=== PATIENT | male | born 1990 | race Two or more races ===

== ENCOUNTER 2016-05-07 13:43 | Emergency (ER) | payer SELFPAY ==
--- NOTE | 2016-05-07 13:52 | ER Document Report ---
ED Medical Screen (RME) - General Stated Complaint: URINARY PROBLEM Time seen by provider: 13:50 Mode of Arrival: Ambulatory Information source: Patient Notes: 25-year-old male presents to ED for left flank pain radiating down the left leg and into his testicles. States after he drank a lot of water and there he noted he was not urinating. States she's never had any pain like this before and denies history of any kidney stones. - HPI Onset: Last week Onset/Duration: Intermittent - Since yesterday more frequent and worse
[2016-05-07] MEDS ORDERED: OXYCODONE-ACETAMINOPHEN 5-325 MG TABLET PO ONE (13:53)
[2016-05-07 14:41] LABS: ABSOLUTE EOSINOPHILS # (AUTO) 0.2 10^3/uL (0.0-0.6); ABSOLUTE LYMPHOCYTES (AUTO) 2.8 10^3/uL (0.5-4.7); ABSOLUTE MONOCYTES (AUTO) 1.2 10^3/uL (0.1-1.4); ABSOLUTE NEUT (AUTO) 5.1 10^3/uL (1.7-8.2); BASOPHILS % (AUTO) 0.5 % (0-2); HEMATOCRIT 46.6 % (37.9-51.0); HEMOGLOBIN 15.3 g/dL (13.5-17.0); HGB HCT DIFFERENCE -0.7; LYMPHOCYTES % (AUTO) 29.6 % (13-45); MEAN CORPUSCULAR HEMOGLOBIN 28.8 pg (27.0-33.4); MEAN CORPUSCULAR HGB CONC 32.9 g/dL (32.0-36.0); MEAN CORPUSCULAR VOLUME 88 fl (80-97); MONOCYTES % (AUTO) 12.9 % (3-13); RED BLOOD COUNT 5.31 10^6/uL (4.35-5.55); RED CELL DISTRIBUTION WIDTH 12.7 % (11.5-14.0); WHITE BLOOD COUNT 9.3 10^3/uL (4.0-10.5)
[2016-05-07 14:46] LABS: APPEARANCE,URINE CLEAR; BILIRUBIN,URINE NEGATIVE (NEGATIVE); GLUCOSE, URINE NEGATIVE (NEGATIVE); KETONES,URINE NEGATIVE (NEGATIVE); LEUKOCYTE ESTERASE,URINE NEGATIVE (NEGATIVE); NITRITE,URINE NEGATIVE (NEGATIVE); PROTEIN,URINE NEGATIVE (NEGATIVE)
[2016-05-07 14:49] LABS: ALANINE AMINOTRANSFERASE 131 U/L (21-72); ALBUMIN 4.9 g/dL (3.5-5.0); ALKALINE PHOSPHATASE 71 U/L (38-126); ANION GAP 16 (5-19); ASPARTATE AMINO TRANSFERASE 62 U/L (17-59); BILIRUBIN,TOTAL 0.9 mg/dL (0.2-1.3); BLOOD UREA NITROGEN 16 mg/dL (7-20); CALCIUM 10.1 mg/dL (8.4-10.2); CARBON DIOXIDE 25 mmol/L (22-30); CHLORIDE 103 mmol/L (98-107); CREATININE RESULT 0.77 mg/dL (0.52-1.25); GLUCOSE 110 mg/dL (75-110); TOTAL PROTEIN 8.6 g/dL (6.3-8.2)
--- NOTE | 2016-05-07 17:19 | ER Document Report ---
ED General - General Chief Complaint: Back Pain Stated Complaint: URINARY PROBLEM Mode of Arrival: Ambulatory TRAVEL OUTSIDE OF THE [place] 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 Patient also complaining of back pain left flank but does sometimes radiate down his left leg. Patient denies any urinary incontinence denies any bowel continence denies any numbness or tingling in the perineal region. Patient denies any trauma. Patient has a history of BPH. Patient denies penile drip or changes. - Related Data Allergies/Adverse Reactions: No Known Allergies Allergy (Unverified 05/07/16 13:52) Past Medical History - General Information source: Patient - Social History Smoking Status: Current Every Day Smoker Chew tobacco use (# tins/day): No Frequency of alcohol use: Occasional Drug Abuse: None Family History: None Patient has suicidal ideation: No Patient has homicidal ideation: No Renal/ Medical History: Denies: Hx Peritoneal Dialysis Review of Systems - Review of Systems Constitutional: No symptoms reported EENT: No symptoms reported Cardiovascular: No symptoms reported Respiratory: No symptoms reported Gastrointestinal: No symptoms reported Genitourinary: Other - Anuric Male Genitourinary: No symptoms reported Musculoskeletal: No symptoms reported Skin: No symptoms reported Hematologic/Lymphatic: No symptoms reported Neurological/Psychological: No symptoms reported -: Yes All other systems reviewed and negative Physical Exam - Vital signs Vitals: Temp Pulse Resp BP Pulse Ox 98.3 F 95 18 139/83 H 96 05/07/16 13:52 05/07/16 13:52 05/07/16 13:52 05/07/16 13:52 05/07/16 13:52 Interpretation: Normal - General General appearance: Appears well, Alert - HEENT Head: Normocephalic, Atraumatic Eyes: Normal Pupils: PERRL - Respiratory Respiratory status: No respiratory distress Chest status: Nontender Breath sounds: Normal Chest palpation: Normal - Cardiovascular Rhythm: Regular Heart sounds: Normal auscultation Murmur: No - Abdominal Inspection: Normal Distension: No distension Bowel sounds: Normal Tenderness: Nontender Organomegaly: No organomegaly - Back Back: Normal, Tender - Paraspinal back pain mild on the left side trauma. - Extremities General upper extremity: Normal inspection, Nontender, Normal color, Normal ROM , Normal temperature General lower extremity: Normal inspection, Nontender, Normal color, Normal ROM , Normal temperature, Normal weight bearing. No: Dimitri's sign - Neurological Neuro grossly intact: Yes Cognition: Normal Orientation: AAOx4 Rupert Coma Scale Eye Opening: Spontaneous [place] Coma Scale Verbal: Oriented [place] Coma Scale Motor: Obeys Commands Rupert Coma Scale Total: 15 Speech: Normal Motor strength normal: LUE, RUE, LLE, RLE Sensory: Normal - Psychological Associated symptoms: Normal affect, Normal mood - Skin Skin Temperature: Warm Skin Moisture: Dry Skin Color: Normal Course - Re-evaluation Re-evalutation: 05/07/16 23:07 Patient's urinalysis did show C[place] year. No signs of infection CT scan negative for any obstructive uropathy. More likely patient has decreased urination is that he is dehydrated. Encouraged patient otherwise working to drink plenty of water to avoid alcohol. Patient is back pain is not consistent with any critical etiology. Possible sciatica. Patient was given anti- inflammatories a medication for home patient was encouraged follow-up with his PCPThe patient presents with low back pain without signs of spinal cord compression, cauda equina syndrome, infection, aneurysm, or other serious etiology. The patient is neurologically intact. Given the extremely low risk of these diagnoses further testing and evaluation for these possibilities does not appear to be indicated at this time. The patient has been instructed to return if the symptoms worsen or change in any way. .. - Vital Signs Vital signs: Temp Pulse Resp BP Pulse Ox 98.2 F 89 16 142/80 H 99 05/07/16 17:30 05/07/16 17:30 05/07/16 17:30 05/07/16 17:30 05/07/16 17:30 - Laboratory Result Diagrams: 05/07/16 14:14 05/07/16 14:14 Laboratory results interpreted by me: 05/07/16 05/07/16 14:14 14:14 AST 62 H ALT 131 H Total Protein 8.6 H Urine Urobilinogen 2.0 H Urine Ascorbic Acid 40 H Discharge - Discharge Clinical Impression: Dehydration Back pain Qualifiers: Back pain location: low back pain Chronicity: acute Back pain laterality: unspecified Sciatica presence: unspecified whether sciatica present Qualified Code(s): M54.5 - Low back pain Disposition: HOME, SELF-CARE Instructions: Oral Narcotic Medication ([facility]), Low Back Pain ([facility]), Dehydration ([facility]), Sciatica ([facility]), Ice Packs ([facility]), Warm Packs ([facility]) Additional Instructions: Your CAT scan labwork today showed no critical etiology except for dehydration. Please drink plenty of water or Gatorade or fluids containing a letter lights while you're working outside. Please follow-up with physicians provided. Return to ER symptoms worsen. Prescriptions: Tramadol HCl [Ultram 50 mg Tablet] 50 mg PO ASDIR PRN #20 tablet PRN Reason: Forms: Return to Work
[2016-05-07 17:53] VITALS: BP 142/80
== END 2016-05-07 17:50 | disposition home or self-care (01) ==
LOC: ER 13:43
DX: M54.5 Low back pain (principal); E86.0 Dehydration; R39.89 Other symptoms and signs involving the genitourinary system; R10.9 Unspecified abdominal pain; F17.200 Nicotine dependence, unspecified, uncomplicated
CPT/HCPCS: 36415; 76380; 80053; 81001; 83690; 85025; 99284

== ENCOUNTER 2017-03-16 20:57 | Emergency (ER) | payer SELFPAY ==
[2017-03-16] MEDS ORDERED: DEXAMETHASONE SOD PHOS INJ 10 MG/1 ML VIAL IM ONE (22:12)
[2017-03-16] MEDS ORDERED: KETOROLAC TROMETHAMINE INJ/PF 30 MG/1 ML SDV IM ONE (22:12)
--- NOTE | 2017-03-16 22:16 | ER Document Report ---
HPI - HPI Pain Level: 5 Notes: Patient is a 26-year-old male who presents the ED complaining of bilateral lower back pain 1 week. Patient states that he had an episode of this 2 months ago and was evaluated and had a full workup performed which was negative at a different hospital. Patient has not been evaluated by his PCM nor orthopedics since then. Patient states that the pain does not radiate and is worse when he moves and improves when he does not move. 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 He denies any injections or procedures to his back, IV drug use, diabetes, or other significant medical history. He denies any drug allergies. Denies any headache, fever, URI, sore throat, chest pain, palpitations, syncope, cough, shortness of breath, wheeze, dyspnea, abdominal pain, nausea/vomiting/diarrhea, urinary retention, dysuria, hematuria, loss of control of bowel or bladder, numbness/tingling, saddle anesthesia, muscle paralysis/weakness, or rash. - ROS Notes: REVIEW OF SYSTEMS: CONSTITUTIONAL : Denies fever, chills, or sweats. Denies recent illness. EENT: Denies eye, ear, throat, or mouth pain or symptoms. Denies nasal or sinus congestion or discharge. Denies throat, tongue, or mouth swelling or difficulty swallowing. CARDIOVASCULAR: Denies chest pain. Denies palpitations or racing or irregular heart beat. RESPIRATORY: Denies cough, cold, or chest congestion. Denies shortness of breath, difficulty breathing, or wheezing. GASTROINTESTINAL: Denies abdominal pain or distention. Denies nausea, vomiting , or diarrhea. GENITOURINARY: Denies difficulty urinating, painful urination, burning, frequency, blood in urine, or discharge. MUSCULOSKELETAL: see hpi SKIN: Denies rash, lesions or sores. NEUROLOGICAL: Denies confusion or altered mental status. Denies passing out or loss of consciousness. Denies dizziness or lightheadedness. Denies headache. Denies weakness or paralysis or loss of use of either side. Denies problems with gait or speech. Denies sensory loss, numbness, or tingling. ALL OTHER SYSTEMS REVIEWED AND NEGATIVE. Dictation was performed using [employer] voice recognition software Past Medical History - Social History Smoking Status: Unknown if Ever Smoked Frequency of alcohol use: Occasional Family History: None Patient has suicidal ideation: No Patient has homicidal ideation: No Renal/ Medical History: Denies: Hx Peritoneal Dialysis - Immunizations Hx Diphtheria, Pertussis, Tetanus Vaccination: No Vertical Provider Document - CONSTITUTIONAL Agree With Documented VS: Yes Notes: PHYSICAL EXAMINATION: GENERAL: Well-appearing, well-nourished and in no acute distress. A&O LUNGS: Breath sounds clear to auscultation bilaterally and equal. No wheezes rales or rhonchi. HEART: Regular rate and rhythm without murmurs, rubs, gallops. ABDOMEN: Soft, nontender, nondistended abdomen. No guarding, no rebound. No masses appreciated. Normal bowel sounds present. No CVA tenderness bilaterally. No pulsatile mass Musculoskeletal: Ext b/l: FROM to passive/active. Strength 5+/5. No deficits noted. No bony tenderness of extremities. Back: FROM to passive/active. Strength 5+/5. No vertebral point tenderness, stepoffs, or deformities. No other bony tenderness or ecchymosis. SLR negative b/l. + mild tenderness to the L-paraspinal mm. No SI jt tenderness. + spasm. Extremities: No cyanosis, clubbing, or edema b/l. Peripheral pulses 2+. Capillary refill less than 2 seconds. NEUROLOGICAL: Normal speech, mildly ataxic gait. Normal sensory, motor exams. Reflexes 2+ b/l. PSYCH: Normal mood, normal affect. SKIN: Warm, Dry, normal turgor, no rashes or lesions noted. - INFECTION CONTROL TRAVEL OUTSIDE OF THE [place] IN LAST 30 DAYS: No - RESPIRATORY O2 Sat by Pulse Oximetry: 98 Course - Re-evaluation Re-evalutation: 03/17/17 01:05 Patient is an afebrile, well-hydrated, 26-year-old male who presents the ED with low back pain, suspect strain/sprain and spasming. Vitals are stable. PE is otherwise unremarkable for any focal neurological deficits. No imaging warranted at this time based on H&P. Toradol was given IM today along with Decadron. Low suspicion for any meningitis, fracture, expanding/ruptured AAA, cauda equina syndrome, epidural mass lesion/abscess, herniated disc causing severe spinal stenosis, or other systemic infection at this time. Patient is aware that his condition can change from initial presentation and that he needs monitor symptoms closely for any acute changes. I will send him home with a prescription for naproxen and baclofen to take as directed. Conservative measures for symptoms otherwise. Recheck with your PCM in 3-5 days. Consider consult with orthopedics and physical therapy. Return to the ED with any worsening/concerning symptoms otherwise as reviewed in discharge. Patient is in agreement. - Vital Signs Vital signs: Temp Pulse Resp BP Pulse Ox 98.4 F 84 18 127/65 H 98 03/16/17 20:57 03/16/17 20:57 03/16/17 20:57 03/16/17 20:57 03/16/17 20:57 Discharge - Discharge Clinical Impression: Low back pain Qualifiers: Chronicity: acute Back pain laterality: bilateral Sciatica presence: without sciatica Qualified Code(s): M54.5 - Low back pain Condition: Stable Disposition: HOME, SELF-CARE Instructions: Ice Packs ([facility]), Low Back Pain ([facility]), Muscle Strain ([facility]), Stretching Exercises for the Back ([facility]), Warm Packs ([facility]) Additional Instructions: Rest, Ice Tylenol/ibuprofen as needed Light stretches daily Strength exercises as able Moist heat and massage may help F/u with your PCP in 3-5 days for a recheck Consider consult(s) with Orthopedics/physical therapy for ongoing/worsening symptoms Return to the ED with any worsening symptoms and/or development of fever, headache, chest pain, palpitations, syncope, shortness of breath, trouble breathing, abdominal pain, n/v/d, blood in stool/urine, loss of control of bowel /bladder, urinary retention, muscle weakness/paralysis, saddle anesthesia, numbness/tingling, or other worsening symptoms that are concerning to you. Prescriptions: Baclofen [Baclofen 10 mg Tablet] 5 - 10 mg PO BID PRN #10 tablet PRN Reason: Naproxen 500 mg PO BID PRN #30 tablet PRN Reason: Forms: Elevated Blood Pressure Referrals: [facility] ([facility] [Provider Group] - Follow up as needed
[2017-03-16 22:39] VITALS: BP 120/68
== END 2017-03-16 22:37 | disposition home or self-care (01) ==
LOC: ER 20:57
DX: M54.5 Low back pain (principal)
CPT/HCPCS: 99283; 96372; 96374; J1885; J1100

== ENCOUNTER 2017-04-09 22:52 | Emergency (ER) | payer SELFPAY ==
[2017-04-10] MEDS ORDERED: OXYCODONE-ACETAMINOPHEN 5-325 MG TABLET PO ONE (00:51)
--- NOTE | 2017-04-10 00:54 | ER Document Report ---
ED GI/ - General Chief Complaint: Groin Pain Stated Complaint: BACK PAIN Time Seen by Provider: 04/10/17 00:38 Notes: Patient is a 26-year-old male who comes emergency department for complaints of testicular pain that radiates up into his abdomen for the past 2-3 days, some mild discomfort with urination, he also states that he has back pain on both sides in his lower back that he has been dealing with for months. He denies discharge, fever/chills, nausea/vomiting. He states he was seen for his back pain recently, he did improve after treatments but then worsened again. He works construction. He denies impact injury, surgery, he takes no daily medications, he denies any past medical history otherwise. He denies IV drug abuse, recreational drug abuse, and he smokes rarely. TRAVEL OUTSIDE OF THE [place] IN LAST 30 DAYS: No - Related Data Allergies/Adverse Reactions: No Known Allergies Allergy (Verified 04/09/17 23:00) Past Medical History - General Information source: Patient - Social History Smoking Status: Current Some Day Smoker Smoking Education Provided: Yes - <3 min Drug Abuse: None Lives with: Family Family History: None Renal/ Medical History: Denies: Hx Peritoneal Dialysis Surgical Hx: Negative - Immunizations Hx Diphtheria, Pertussis, Tetanus Vaccination: No Review of Systems - Review of Systems Constitutional: No symptoms reported EENT: No symptoms reported Cardiovascular: No symptoms reported Respiratory: No symptoms reported Gastrointestinal: See HPI Genitourinary: See HPI Male Genitourinary: See HPI Musculoskeletal: See HPI Skin: No symptoms reported Hematologic/Lymphatic: No symptoms reported Neurological/Psychological: No symptoms reported Physical Exam - Vital signs Vitals: Temp Pulse Resp BP Pulse Ox 97.9 F 78 16 143/80 H 98 04/09/17 23:05 04/09/17 23:05 04/09/17 23:05 04/09/17 23:05 04/09/17 23:05 Interpretation: Normal - General General appearance: Appears well, Alert In distress: None - Patient moves stiffly (position changes, getting out of bed , bending over) but otherwise he is in no distress, he ambulates without difficulty. - HEENT Head: Normocephalic, Atraumatic Eyes: Normal Pupils: PERRL - Respiratory Respiratory status: No respiratory distress Chest status: Nontender Breath sounds: Normal Chest palpation: Normal - Cardiovascular Rhythm: Regular. No: Tachycardia Heart sounds: Normal auscultation, S1 appreciated, S2 appreciated Murmur: No - Abdominal Inspection: Normal Distension: No distension Bowel sounds: Normal Tenderness: Nontender Organomegaly: No organomegaly - Genitourinary Inspection: Normal. No: Blood at meatus, Penile discharge Tenderness: Testicle tender - Minimally tender testicles mainly posteriorly, no overt severe tenderness, no swelling, erythema, abnormal coloration. Cremasteric reflex: Normal Scrotum: Normal. No: Swelling, Redness, Hot to touch - Back Back: Tender - Palpable tenderness along the paraspinal lumbar muscles, no saddle anesthesia, negative straight leg raise, no midline tenderness, full range of motion of all extremities, normal distal neurovascular exam - Extremities General upper extremity: Normal inspection, Nontender, Normal color, Normal ROM , Normal temperature General lower extremity: Normal inspection, Nontender, Normal color, Normal ROM , Normal temperature, Normal weight bearing. No: Dimitri's sign - Neurological Neuro grossly intact: Yes Cognition: Normal Orientation: AAOx4 [place] Coma Scale Eye Opening: Spontaneous Rupert Coma Scale Verbal: Oriented Rupert Coma Scale Motor: Obeys Commands Rupert Coma Scale Total: 15 Speech: Normal Motor strength normal: LUE, RUE, LLE, RLE Sensory: Normal - Psychological Associated symptoms: Normal affect, Normal mood - Skin Skin Temperature: Warm Skin Moisture: Dry Skin Color: Normal Course - Re-evaluation Re-evalutation: Patient has had a CAT scan earlier in the year which had normal spine, no kidney stones, no acute findings. Patient does have some pain over his testicles on examination but no swelling, normal cremaster reflex, no discharge, no obvious abnormalities. Abdomen is unremarkable. Patient has paraspinal lumbar tenderness in his back on both sides on examination. Pain with movement especially bending over. No neurological deficits. CBC, chemistry, urinalysis, gonorrhea and Chlamydia tests are all negative. Ultrasound showing small bilateral hydroceles. Discussed results in detail with patient. Discussed hydroceles, treatment, follow-up for these. Patient will be treated for back pain. Patient states that he has a ton of stress on his back with his work and he is actually going to be seeking a different position of work after this because of his ongoing difficulties with it. Discussed return precautions in detail including red flag symptoms of back pain and progressing symptoms. Patient states understanding and agreement. - Vital Signs Vital signs: Temp Pulse Resp BP Pulse Ox 98.0 F 66 20 139/84 H 99 04/10/17 03:30 04/10/17 03:30 04/10/17 03:30 04/10/17 03:30 04/10/17 03:30 - Laboratory Result Diagrams: 04/10/17 01:43 04/10/17 01:43 Laboratory results interpreted by me: 04/10/17 04/10/17 04/10/17 01:36 01:43 01:43 Seg Neutrophils % 41.7 L Calcium 10.3 H Urine Ascorbic Acid 40 H Discharge - Discharge Clinical Impression: Testicular pain Lower back pain Qualifiers: Chronicity: acute Back pain laterality: bilateral Sciatica presence: without sciatica Qualified Code(s): M54.5 - Low back pain Condition: Stable Disposition: HOME, SELF-CARE Additional Instructions: Ultrasound shows small hydroceles, this should go away in time, see additional instructions on hydroceles. No other abnormality is seen with genital exam. Your blood work and urine did not show any concerning abnormalities. For your lower back pain I recommend taking the prednisone as prescribed, take the Robaxin muscle relaxer, apply heat to the area, avoid lifting and twisting, and rest. Follow-up with primary care clinic referral placed. Return if you worsen including fevers, vomiting, numbness, or any other concerning symptoms. Prescriptions: Methocarbamol [Robaxin 750 mg Tablet] 750 mg PO Q6 #20 tablet Prednisone [Deltasone 10 mg Tablet] 10 mg PO ASDIR PRN #21 tablet PRN Reason:
[2017-04-10 01:59] LABS: ABSOLUTE EOSINOPHILS # (AUTO) 0.4 10^3/uL (0.0-0.6); ABSOLUTE LYMPHOCYTES (AUTO) 4.6 10^3/uL (0.5-4.7); ABSOLUTE NEUT (AUTO) 4.3 10^3/uL (1.7-8.2); BASOPHILS % (AUTO) 0.5 % (0-2); EOSINOPHILS % (AUTO) 3.6 % (0-6); HEMOGLOBIN 14.8 g/dL (13.5-17.0); HGB HCT DIFFERENCE 2.4; LYMPHOCYTES % (AUTO) 44.5 % (13-45); MEAN CORPUSCULAR HEMOGLOBIN 30.2 pg (27.0-33.4); MEAN CORPUSCULAR HGB CONC 35.2 g/dL (32.0-36.0); MEAN CORPUSCULAR VOLUME 86 fl (80-97); MONOCYTES % (AUTO) 9.7 % (3-13); RED BLOOD COUNT 4.89 10^6/uL (4.35-5.55); RED CELL DISTRIBUTION WIDTH 12.2 % (11.5-14.0); SEGMENTED NEUTROPHILS % (AUTO) 41.7 % (42-78); WHITE BLOOD COUNT 10.4 10^3/uL (4.0-10.5)
[2017-04-10 02:22] LABS: APPEARANCE,URINE CLEAR; BILIRUBIN,URINE NEGATIVE (NEGATIVE); GLUCOSE, URINE NEGATIVE (NEGATIVE); KETONES,URINE NEGATIVE (NEGATIVE); LEUKOCYTE ESTERASE,URINE NEGATIVE (NEGATIVE); NITRITE,URINE NEGATIVE (NEGATIVE); PROTEIN,URINE NEGATIVE (NEGATIVE); UROBILINOGEN,URINE NEGATIVE mg/dL (<2.0)
--- NOTE | 2017-04-10 02:44 | RADIOLOGY REPORT (SQ) ---
EXAM DESCRIPTION: U/S SCROTUM W/DOPPLER CLINICAL HISTORY: 26 years, Male, testicular pain COMPARISON: None. LIMITATIONS: None. FINDINGS: 4.4 cm right testis, 4.1 cm left testis, epididymides, and small bilateral hydroceles appear otherwise of normal size, shape, echotexture, and vascularity. IMPRESSION: Small bilateral hydroceles. Normal testes. 2011 [employer]- All Rights Reserved
[2017-04-10 02:49] LABS: ANION GAP 14 (5-19); BLOOD UREA NITROGEN 18 mg/dL (7-20); CALCIUM 10.3 mg/dL (8.4-10.2); CARBON DIOXIDE 28 mmol/L (22-30); CHLORIDE 103 mmol/L (98-107); CREATININE RESULT 0.69 mg/dL (0.52-1.25); GLUCOSE 94 mg/dL (75-110); POTASSIUM 3.9 mmol/L (3.6-5.0); SODIUM 144.5 mmol/L (137-145)
[2017-04-10] MEDS ORDERED: PREDNISONE 20 MG TABLET PO ONE (03:33)
[2017-04-10 03:49] VITALS: BP 139/84
== END 2017-04-10 03:58 | disposition home or self-care (01) ==
LOC: ER 22:52
DX: N43.3 Hydrocele, unspecified (principal); M54.5 Low back pain; F17.200 Nicotine dependence, unspecified, uncomplicated; Z71.6 Tobacco abuse counseling
CPT/HCPCS: 99284; 36415; 85025; 80048; 81001; 87491; 87591; 76870; 93976; J7512